=== PATIENT | male | born 1990 | race Two or more races ===

== ENCOUNTER 2017-12-13 21:56 | Emergency (ER) | payer SELFPAY ==
[2017-12-13] MEDS ORDERED: Ketorolac INJ* 30 MG/ML 1 ML VIAL IM ONE (22:47)
[2017-12-13] MEDS ORDERED: Penicillin VK TAB* 250 MG PO ONE (22:47)
--- NOTE | 2017-12-13 22:51 | ED ---
Throat Pain/Nasal Congestion - HPI Summary HPI Summary: 27 year male presents with left-sided upper dental pain for the past 4 days. States he has a history of bad teeth and has not seen a dentist. He denies any fevers. Denies any pain with eye movement. He denies any swelling around eyes. He denies any chest pain or shortness of breath. She is able to keep normal. Has been taking ibuprofen. Pain is in 6 out of 10. He does not currently have insurance to get a dentist. - History of Current Complaint Chief Complaint: EDDentalPain Time Seen by Provider: 12/13/17 22:12 - Allergies/Home Medications Allergies/Adverse Reactions: Allergies Allergy/AdvReac Type Severity Reaction Status Date / Time No Known Allergies Allergy Verified 12/13/17 22:36 PMH/Surg Hx/FS Hx/Imm Hx Endocrine/Hematology History: Denies: Hx Anticoagulant Therapy Respiratory History: Denies: Hx Asthma Infectious Disease History: No Infectious Disease History: Denies: Traveled Outside the [place] in Last 30 Days - Family History Known Family History: Positive: Hypertension - Social History Alcohol Use: Weekly Substance Use Type: Reports: Marijuana Smoking Status (MU): Light Every Day Tobacco Smoker Review of Systems Negative: Fever Positive: Dental Pain Negative: Chest Pain Negative: Shortness Of Breath All Other Systems Reviewed And Are Negative: Yes Physical Exam Triage Information Reviewed: Yes Vital Signs On Initial Exam: Initial Vitals Temp Pulse Resp BP Pulse Ox 98.6 F 78 18 142/99 100 12/13/17 21:59 12/13/17 21:59 12/13/17 21:59 12/13/17 21:59 12/13/17 21:59 Vital Signs Reviewed: Yes Appearance: Positive: Well-Appearing Skin: Positive: Warm, Dry Head/Face: Positive: Normal Head/Face Inspection Eyes: Positive: Normal, EOMI, JESUS, Conjunctiva Clear ENT: Positive: Normal ENT inspection, Pharynx normal, TMs normal Dental: Positive: Percussion Tenderness @ - 14,17, Gross Decay/Caries @ - throughout Respiratory/Lung Sounds: Positive: Clear to Auscultation, Breath Sounds Present Cardiovascular: Positive: Normal, RRR Abdomen Description: Positive: Nontender, Soft Bowel Sounds: Positive: Present Musculoskeletal: Positive: Normal Neurological: Positive: Normal Psychiatric: Positive: Normal Diagnostics - Vital Signs Vital Signs Temp Pulse Resp BP Pulse Ox 12/13/17 21:59 98.6 F 78 18 142/99 100 - Laboratory Lab Statement: Any lab studies that have been ordered have been reviewed, and results considered in the medical decision making process. EENT Course/Dx - Course Course Of Treatment: 27 year male presents with left-sided upper dental pain for the past 4 days. States he has a history of bad teeth and has not seen a dentist. He denies any fevers. Denies any pain with eye movement. He denies any swelling around eyes. He denies any chest pain or shortness of breath. She is able to keep normal. Has been taking ibuprofen. Pain is in 6 out of 10. He does not currently have insurance to get a dentist. On exam has tenderness to 14 and 17. No abscess felt. We will treat with penicillin. Told to follow up with a dentist. Patient understands and agrees the plan. - Differential Diagnoses Differential Diagnoses: Dental Abscess, Dental Caries, Fractured Tooth - Diagnoses Provider Diagnoses: Dental infection Discharge - Sign-Out/Discharge Documenting (check all that apply): Discharge/Admit/Transfer - Discharge Plan Condition: Good Disposition: HOME Prescriptions: Penicillin VK TAB* [Penicillin VK 250 mg Tab*] 500 mg PO QID #27 tab Patient Education Materials: Toothache (ED) Referrals: [facility] [Outside] Additional Instructions: Take antibiotics: 4 times a day for 7 days, first dose given in ED Use ibuprofen or tyenlol every 6 hours Avoid hard, crunchy food until seen by dentist Follow up with dentist as soon as possible Return to ED if develop fever, shortness of breath, pain with eye movement or swelling around eye Establish care with primary care physician - Billing Disposition and Condition Condition: GOOD Disposition: HOME Images - Images Dental: 1 - pain 2 - pain
[2017-12-13 23:27] VITALS: BP 145/85
== END 2017-12-13 23:26 | disposition home or self-care (01) ==
LOC: ED 21:56
DX: K08.89 Other specified disorders of teeth and supporting structures (principal); F17.210 Nicotine dependence, cigarettes, uncomplicated
CPT/HCPCS: 99282; A9270-GY; J1885

== ENCOUNTER 2019-07-30 10:42 | Emergency (ER) | payer BC ==
--- NOTE | 2019-07-30 11:35 | ED ---
Complex/Multi-Sys Presentation - HPI Summary HPI Summary: Patient is a 29 y/o M presenting to [facility] with complaints of N/V, chills, hot flashes, and diaphoresis. He states that he got six teeth pulled two days ago and reports that a stitch was placed at one area of his mouth. This morning, patient had N/V and claims there was blood in the vomit. Some chills, hot flashes, and diaphoresis onset afterwards. Patient smokes cigarettes and uses alcohol and marijuana. On triage, associated severity is rated 5/10. Nothing is noted to aggravate/alleviate Sx. Home medications and allergies are reviewed. - History Of Current Complaint Chief Complaint: EDDentalPain Time Seen by Provider: 07/30/19 11:29 Hx Obtained From: Patient Onset/Duration: Lasting Hours Timing: Intermittent, Lasting: Severity Currently: Moderate Aggravating Factor(s): nothing Alleviating Factor(s): nothing Associated Signs And Symptoms: Positive: Nausea, Vomiting - with blood, Other - positive - hot flashes, chills, diaphoresis - Allergies/Home Medications Allergies/Adverse Reactions: Allergies Allergy/AdvReac Type Severity Reaction Status Date / Time No Known Allergies Allergy Verified 04/10/19 16:36 PMH/Surg Hx/FS Hx/Imm Hx Endocrine/Hematology History: Denies: Hx Anticoagulant Therapy, Hx Diabetes Cardiovascular History: Denies: Hx Hypertension Respiratory History: Denies: Hx Asthma History: Denies: Hx Renal Disease Infectious Disease History: No Infectious Disease History: Denies: Traveled Outside the [place] in Last 30 Days - Family History Known Family History: Positive: Hypertension Family History: Father with lung CA - Social History Alcohol Use: Weekly Substance Use Type: Reports: Marijuana Smoking Status (MU): Light Every Day Tobacco Smoker Review of Systems Constitutional: Other - positive - hot flashes Positive: Chills, Skin Diaphoresis Positive: Vomiting - with blood , Nausea All Other Systems Reviewed And Are Negative: Yes Physical Exam - Summary Physical Exam Summary: Appearance: The patient is well-nourished in no acute distress and in no acute pain. Skin: The skin is warm and dry, and skin color reflects adequate perfusion. HEENT: The head is normocephalic and atraumatic. The pupils are equal and reactive. The conjunctivae are clear and without drainage. Nares are patent and without drainage. Mouth reveals moist mucous membranes, and the throat is without erythema and exudate. The external ears are intact. The ear canals are patent and without drainage. The tympanic membranes are intact. Teeth sockets are clean, there are some blood clots noted. Suture in place with no active bleeding. Neck: The neck is supple with full range of motion and non-tender. There are no carotid bruits. There is no neck vein distension. Respiratory: Chest is non-tender. Lungs are clear to auscultation and breath sounds are symmetrical and equal. Cardiovascular: Heart is regular rate and rhythm. There is no murmur or rub auscultated. There is no peripheral edema and pulses are symmetrical and equal. Abdomen: The abdomen is soft and non-tender. There are normal bowel sounds heard in all four quadrants and there is no organomegaly palpated. Musculoskeletal: There is no back tenderness noted. Extremities are non-tender with full range of motion. There is good capillary refill. There is no peripheral edema or calf tenderness elicited. Neurological: Patient is alert and oriented to person, place and time. The patient has symmetrical motor strength in all four extremities. Cranial nerves are grossly intact. Deep tendon reflexes are symmetrical and equal in all four extremities. Psychiatric: The patient has an appropriate affect and does not exhibit any anxiety or depression. Triage Information Reviewed: Yes Vital Signs On Initial Exam: Initial Vitals Temp Pulse Resp BP Pulse Ox 98.8 F 88 16 144/96 98 07/30/19 10:54 07/30/19 10:54 07/30/19 10:54 07/30/19 10:54 07/30/19 10:54 Vital Signs Reviewed: Yes Procedures - Sedation Patient Received Moderate/Deep Sedation with Procedure: No Diagnostics - Vital Signs Vital Signs Temp Pulse Resp BP Pulse Ox 07/30/19 10:54 98.8 F 88 16 144/96 98 - Laboratory Lab Statement: Any lab studies that have been ordered have been reviewed, and results considered in the medical decision making process. Complex Multi-Symp Course/Dx Course Of Treatment: Mr Yusuf was concerned that he got all the gauze out of his teeth sockets because he vomited blood and felt chills. His vitals were stable and he was nontoxic in appearance. His sockets were ready clean, there were couple of fresh clots. There was no ongoing bleeding. His suture was in place. I think likely he is been swallowing some blood and this caused him to be vagal involvement. He looks fine at this time and I recommended to continue to follow up as directed by his oral surgeon. - Diagnoses Provider Diagnoses: Post-op bleeding Discharge ED - Sign-Out/Discharge Documenting (check all that apply): Patient Departure - discharge - Discharge Plan Condition: Stable Disposition: HOME Patient Education Materials: Postoperative Bleeding (ED) Referrals: [facility] [Outside] - 3 Days Additional Instructions: Please follow up with the dentist or oral surgeon who performed the teeth removal. Please return to ED for any continued vomiting or bleeding. - Billing Disposition and Condition Condition: STABLE Disposition: Home - Attestation Statements Document Initiated by Chelseaibenrique: Yes Documenting Scribe: CYNDI GANNON Provider For Whom Melinda is Documenting (Include Credential): TIMMY MCARTHUR MD Scribe Attestation: CYNDI Jimenez, scribed for TIMMY MCARTHUR MD on 07/30/19 at 1204. Scribe Documentation Reviewed: Yes Provider Attestation: The documentation as recorded by the CYNDI melgoza accurately reflects the service I personally performed and the decisions made by me, TIMMY MCARTHUR MD Status of Scribe Document: Viewed
[2019-07-30 11:53] VITALS: BP 145/105
== END 2019-07-30 11:52 | disposition home or self-care (01) ==
LOC: ED 10:42
DX: K91.840 Postprocedural hemorrhage of a digestive system organ or structure following a digestive system procedure (principal); R11.2 Nausea with vomiting, unspecified; R68.83 Chills (without fever); R61 Generalized hyperhidrosis; F17.200 Nicotine dependence, unspecified, uncomplicated
CPT/HCPCS: 99282